=== PATIENT | female | born 1955 | race Caucasian/White ===

== ENCOUNTER → 2017-10-20 | Outpatient (CLI) | payer BC ==
--- NOTE | 2017-10-23 09:57 | MM ---
Reason for exam: screening (asymptomatic). Last mammogram was performed 2 years and 8 months ago. History: Patient is postmenopausal. Physical Findings: A clinical breast exam by your physician is recommended on an annual basis and results should be correlated with mammographic findings. MG Screening Mammo w CAD Bilateral CC and MLO view(s) were taken. Prior study comparison: February 09, 2015, bilateral MG screening mammo w CAD. January 14, 2013, bilateral digital screening mammo w/CAD. There are scattered fibroglandular densities. Finding: There is a 5 mm equal density (isodense) mass located 7 cm from the nipple in the posterior position of the left breast. Asymmetric breast tissue in the right breast on MLO view. New finding since February 09, 2015 and January 14, 2013. ASSESSMENT: Incomplete: need additional imaging evaluation, BI-RAD 0 RECOMMENDATION: Special view mammogram of the right breast. If lesion persists on supplemental views, image directed ultrasound is recommended. [facility] will attempt to contact patient to return for supplemental views and ultrasound if indicated.
== END | disposition home or self-care (01) ==
LOC: RADMAMWWP 07:11
PROVIDERS: ATTEND Family Medicine
DX: Z12.31 Encounter for screening mammogram for malignant neoplasm of breast (principal)
CPT/HCPCS: 77067

== ENCOUNTER → 2017-11-02 | Outpatient (CLI) | payer BC ==
--- NOTE | 2017-11-03 09:34 | MM ---
Reason for exam: additional evaluation requested from abnormal screening. Last mammogram was performed less than 1 month ago. History: Patient is postmenopausal. Physical Findings: Nurse did not find any significant physical abnormalities on exam. MG 3D Work Up W/Cad SYLVIA Bilateral spot compression CC, spot compression MLO, and LM view(s) were taken. Prior study comparison: October 20, 2017, bilateral MG screening mammo w CAD. February 09, 2015, bilateral MG screening mammo w CAD. The breast tissue is heterogeneously dense. This may lower the sensitivity of mammography. There are two persistent subcentimeter new masses at the left lower inner quadrant at middle depth for which ultrasound will be performed. The previously seen right breast abnormalities appear as fibroglandular tissue on additional view. These results were verbally communicated with the patient and result sheet given to the patient on 11/02/17. ASSESSMENT: Incomplete: need additional imaging evaluation, BI-RAD 0 RECOMMENDATION: Ultrasound of the left breast.
--- NOTE | 2017-11-03 09:39 | USB ---
Reason for exam: additional evaluation requested from abnormal screening. History: Patient is postmenopausal. US Breast Workup Limited LT Left limited breast ultrasound including focal area of concern, retroareolar and axilla demonstrates a 0.5 x 0.8 x 0.4cm oval, irregular lesion at 8 o'clock hypoechoic and irregular margins, a 0.5 x 0.5 x 0.3cm oval, irregular lesion at 8 o'clock, duct ectasia at the posterior nipple and a 2.0 x 1.8 x 1.2cm oval axilla node, prominent but mammogram appear similar to 2015 and 2012. Re-evaluate for need to biopsy based on results of breast mass biopsy. These results were verbally communicated with the patient and result sheet given to the patient on 11/02/17. ASSESSMENT: Suspicious, BI-RAD 4 RECOMMENDATION: Ultrasound core biopsy of the left breast. Called Dr. Cat with mammographic findings and has scheduled an appointment for the patient for 11/29/17 at 2:[address] Sotelo. Biopsy scheduled for 11/10/17 at 11:30. PRELIMINARY REPORT CALLED AND FAXED TO DR. SOTELO ON 11/03/17.
== END | disposition home or self-care (01) ==
LOC: RADMAMWWP 14:26
PROVIDERS: ATTEND Family Medicine
DX: R92.8 Other abnormal and inconclusive findings on diagnostic imaging of breast (principal)
CPT/HCPCS: 77062; 77066

== ENCOUNTER → 2017-11-10 | Day surgery (SDC) | payer BC ==
[2017-11-10 10:50] VITALS: RESP 14; TEMP 97.8; BMI 29.7
--- NOTE | 2017-11-10 12:52 | USB ---
EXAMINATION TYPE: US biopsy breast VAD LT, MG diagnostic mammo LT wo CAD DATE OF EXAM: 11/10/2017 CLINICAL HISTORY: R92.8 Abnormal Mammogram. TECHNIQUE: Ultrasound guided core biopsy of the left breast. COMPARISON: Left breast ultrasound dated 11/02/2017 FINDINGS: The procedure of ultrasound guided core biopsy was explained to the patient. Benefits, alternatives, and risks were discussed. An informed consent was then obtained. Preprocedural timeout was performed. The patient was placed in supine positioning for imaging and for the procedure. The overlying skin was prepped and draped in usual sterile fashion. 10 cc of lidocaine buffered with bicarbonate was used as anesthetic into the skin and subcutaneous tissues. 10 cc of lidocaine with lidocaine was utilized to anesthetize the subcutaneous tissue up to the 0.5 x 0.8 x 0.4 cm mass and the 0.5 x 0.5 x 0.3 cm mass at the 8:00 position within the left breast. Under ultrasound guidance, a 12-gauge vacuum assisted biopsy gun device was used to obtain 5 core samples. After the initial biopsy both of these masses collapse suggestive of complicated cysts. Following this, a coil-shaped biopsy marker was left in lesion. The biopsy marker appears appropriately placed. The patient tolerated the procedure well without any immediate complication. The patient was kept in the radiology department for short stay after the procedure and then discharged home in stable condition. IMPRESSION: Successful, uncomplicated ultrasound guided core biopsy of the 0.5 x 0.8 x 0.4 cm mass and the 0.5 x 0.5 x 0.3 cm mass at the 8:00 position within the left breast, full pathology results to follow. Collapse was noted that these masses at the time of biopsy after initial sampling suggestive of complicated cysts. Pathology Results: Benign CORE BIOPSY, LEFT BREAST: Cystic non-proliferative changes: duct ectasia, lobular dilatation and apocrine metaplasia. Follow up mammogram of the left breast in 6 months. FRANCOISD
[2017-11-10 13:32] VITALS: BP 142/83; PULSE 68
== END ==
LOC: RADUSWWP 10:22
PROVIDERS: ATTEND Surgery
DX: N60.42 Mammary duct ectasia of left breast (principal); N60.82 Other benign mammary dysplasias of left breast
CPT/HCPCS: 88305; 77065; 19083; A4648; J2001

== ENCOUNTER → 2021-05-12 | Outpatient (CLI) | payer MEDICARE ==
--- NOTE | 2021-05-12 19:12 | BD ---
EXAMINATION TYPE: Axial Bone Density DATE OF EXAM: 05/12/2021 COMPARISON: 04.05.2002 CLINICAL HISTORY: 66 YR OLD FEMALE......ICD-10 CODE: M81.0 OSTEOPOROSIS Height: 58 Weight: 130 FRAX RISK QUESTIONS: 3. Menopause before 45: AT 44 RISK FACTORS HISTORY OF: Postmenopausal woman: YES, AT AGE 44 YRS, TOTAL HYST Lost more than 2 inches in height since high school: YES Hyperparathyroidism: NO Adrenal Insufficiency: NO MEDICATIONS: Additional Medications: BP MEDS, REFLUX MEDS, STATIN FOR CHOLESTEROL, VIT D, MULTIVITAMIN Additional History: HYPERTENSION, REFLUX, CHOLESTEROL, EXAM MEASUREMENTS: Bone mineral densitometry was performed using the [employer]. Bone mineral density as measured about the Lumbar spine is: ----- L1-L4(G/cm2): 1.193 T Score Values are as follows: ----- L1: -0.9 ----- L2: -0.6 ----- L3: 0.1 ----- L4: 0.9 ----- L1-L4: 0.1 Bone mineral density has: Increased 1.3% since study of: 04.05.2002 Bone mineral density about the R hip (g/cm2): 0.904 Bone mineral density about the L hip (g/cm2): 0.915 T Score values are as follows: -----R Neck: -1.7 -----L Neck: -1.8 -----R Total: -0.8 -----L Total: -0.7 Bone mineral density has: Decreased -10.3% since study of: 04.05.2002 FRAX%s: THERE IS A 10.4% CHANCE FOR A MAJOR OSTEOPOROTIC FX AND A 1.5% FOR HIPS......PROBABILITY FO R FX IN 10 YRS TIME IMPRESSION: No evidence for osteopenia or osteoporosis. NOTE: T-SCORE=SD OF THE YOUNG ADULT MEAN.
--- NOTE | 2021-05-14 09:42 | MM ---
Reason for exam: screening (asymptomatic). Last mammogram was performed 3 years and 6 months ago. History: Patient is postmenopausal. Benign US biopsy breast VAD LT of the left breast, November 10, 2017. Physical Findings: A clinical breast exam by your physician is recommended on an annual basis and results should be correlated with mammographic findings. MG 3D Screening Mammo W/Cad Bilateral CC and MLO view(s) were taken. Prior study comparison: November 10, 2017, left breast MG diagnostic mammo LT wo CAD. November 02, 2017, bilateral MG 3d work up w/cad SYLVIA. Previous mammotome biopsy in the left breast. Increased 5 o'clock far posterior focal asymmetry right breast. ASSESSMENT: Incomplete: need additional imaging evaluation, BI-RAD 0 RECOMMENDATION: Special view mammogram of the right breast. (3D) If lesion persists on supplemental views, image directed ultrasound is recommended. [facility] will attempt to contact patient to return for supplemental views and ultrasound if indicated.
== END | disposition home or self-care (01) ==
LOC: RADMAMWWP 09:46
PROVIDERS: ATTEND Family Medicine
DX: Z12.31 Encounter for screening mammogram for malignant neoplasm of breast (principal); M85.89 Other specified disorders of bone density and structure, multiple sites; Z78.0 Asymptomatic menopausal state
CPT/HCPCS: 77063; 77067; 77080

== ENCOUNTER → 2021-06-01 | Outpatient (CLI) | payer MEDICARE ==
--- NOTE | 2021-06-01 11:38 | MM ---
Reason for exam: additional evaluation requested from abnormal screening. Last mammogram was performed 1 month ago. History: Patient is postmenopausal. Benign US biopsy breast VAD LT of the left breast, November 10, 2017. Physical Findings: Nurse Summary: 1cm nodule in the right breast at 5 o'clock (nurse ms). MG 3D Work Up W/Cad RT Spot compression CC, spot compression MLO, and LM view(s) were taken of the right breast. Prior study comparison: May 12, 2021, bilateral MG 3d screening mammo w/cad. November 10, 2017, left breast MG diagnostic mammo LT wo CAD. Lesion does not go completely away. These results were verbally communicated with the patient and result sheet given to the patient on 06/01/21. ASSESSMENT: Incomplete: need additional imaging evaluation, BI-RAD 0 RECOMMENDATION: Ultrasound of the right breast.
--- NOTE | 2021-06-01 11:40 | USB ---
Reason for exam: additional evaluation requested from abnormal screening. History: Patient is postmenopausal. Benign US biopsy breast VAD LT of the left breast, November 10, 2017. US Breast Workup Limited RT Right limited breast ultrasound including focal area of concern, retroareolar and axilla demonstrates a 10 x 11 x 6mm irregular, solid, hypoechoic lesion at 5 o'clock BB, biopsy recommended and a 7mm oval, normal lymph node at the axilla tail. These results were verbally communicated with the patient and result sheet given to the patient on 06/01/21. ASSESSMENT: Suspicious, BI-RAD 4 RECOMMENDATION: Ultrasound core biopsy of the right breast. Patient wants to see Dr. Gill Sotelo first. Called office with mammographic findings and has scheduled an appointment for the patient for 06/03/21 at 9:[address] Sotelo. PRELIMINARY REPORT CALLED AND FAXED TO DR. SOTELO ON 06/01/21.
== END | disposition home or self-care (01) ==
LOC: RADMAMWWP 09:50
PROVIDERS: ATTEND Family Medicine
DX: N64.89 Other specified disorders of breast (principal); Z78.0 Asymptomatic menopausal state
CPT/HCPCS: 77065; 76642; G0279; 77061

== ENCOUNTER → 2024-08-29 | Outpatient (CLI) | payer MEDICARE ==
--- NOTE | 2024-08-29 11:32 | MM ---
Reason for Exam: Screening (asymptomatic). Last mammogram was performed 3 year(s) and 4 month(s) ago. Patient History: Menarche at age 11. First Full-Term at age 23. Right ovary removed at age 44. Hysterectomy at age 44. Postmenopausal. 11/10/2017, Benign Core Biopsy on the left side. Risk Values: Lolly 5 year model risk: 1.8%. NCI Lifetime model risk: 5.3%. Prior Study Comparison: 11/10/2017 Left Diagnostic Mammogram, [facility]. 05/12/2021 Bilateral Screening Mammogram, [facility]. 06/01/2021 Right Diagnostic Mammogram, [facility]. Tissue Density: There are scattered areas of fibroglandular density. Findings: Analyzed By CAD. Mammotome biopsy clip in the left breast is redemonstrated. There is increasing focal asymmetry in the posterior depth central aspect right breast on cc view likely corresponding to the posterior aspect on MLO view. Overall Assessment: Incomplete: need additional imaging evaluation, BI-RAD 0 Management: Diagnostic Breast Ultrasound of the right breast. Targeted ultrasound right breast. Reassessment of area of concern on 2021 ultrasound Patient should continue monthly self-breast exams. A clinical breast exam by your physician is recommended on an annual basis. This exam should not preclude additional follow-up of suspicious palpable abnormalities. Note on Lolly scores and lifetime risk: 1. A Lolly score greater than 3% is considered moderate risk. If this is the case, consider specialist referral to assess eligibility for a risk reducing agent. 2. If overall lifetime risk for the development of breast cancer is 20% or higher, the patient may qualify for future screening with alternating mammogram and breast MRI. [facility], , 08/29/2024 11:29 AM. Electronically signed and approved by: Virgil Cristobal M.D.
== END | disposition home or self-care (01) ==
LOC: RADMAMWWP 10:36
PROVIDERS: ATTEND Family Medicine
DX: Z12.31 Encounter for screening mammogram for malignant neoplasm of breast (principal); R92.323 Mammographic fibroglandular density, bilateral breasts; Z78.0 Asymptomatic menopausal state
CPT/HCPCS: 77063; 77067